=== PATIENT | female | born 1990 | race Caucasian/White ===

== ENCOUNTER 2023-05-14 17:13 | Emergency (ER) | payer OTHER, MEDICAID, SELFPAY ==
[2023-05-14] VITALS (12 sets, daily range): BP systolic 80–141; BP diastolic 47–71; PULSE 75–100; RESP 18–22; TEMP 36.8–37.1; O2SAT 98–100; BMI 31.5
[2023-05-14] MEDS: ONDANSETRON 4 MG/2 ML INJ IV (17:41)
--- NOTE | 2023-05-14 17:42 | PC.NURSE ---
Pt receiving IV in the [facility]. states she feels faint. appears pale. Pt had vasovagal reaction. HR 90 BP 80/49. reclined in chair. fluids infusing. zofran given. after 10 min, pt cheeks appear more flushed. at bedside. states she is feeling mildly better.
[2023-05-14] MEDS: SODIUM CHLORIDE 0.9% 1,000 ML 1000 ML IV ×2 (17:44→18:20)
[2023-05-14 18:22] LABS: Add Manual Diff / Slide Review NO; Basophils Absolute Auto 0 /uL (0-100); Basophils Percent Auto 0.4 % (0-2); Eosinophils Absolute Auto 0 /uL (0-450); Eosinophils Percent Auto 0.3 % (2-4); Hematocrit 41.4 % (36-46); Hemoglobin 14.3 g/dL (12.0-16.0); Lymphocytes Absolute Auto 400 /uL (1100-4500); Lymphocytes Percent Auto 3.2 % (25-40); Mean Corpuscular HGB Conc 34.6 % (30-36); Mean Corpuscular Hemoglobin 32.1 PG (26-34); Mean Corpuscular Volume 92.9 fL (80-100); Monocytes Absolute Auto 300 /uL (0-900); Neutrophils Absolute Auto 10600 /uL (1500-7000); Neutrophils Percent Auto 93.1 % (50-75); Platelet Count 304 X10^3/uL (150-400); Red Blood Cell Count 4.46 X10^6/uL (4.0-5.2); Red Cell Distribution Width 12.9 % (11.6-14.8); White Blood Cell Count 11.4 X10^3/uL (4.5-11.0)
[2023-05-14 18:36] LABS: BUN Creatinine Ratio 19.3 (6-22); Blood Urea Nitrogen 16 mg/dL (7-17); Calcium 9.1 mg/dL (8.4-10.2); Carbon Dioxide 21 mmol/L (22-32); Chloride 105 mmol/L (98-107); Estimated Glomerular Filt Rate > 60 mL/min (>60); Glucose 132 mg/dL (70-100); HEMOLYSIS < 15 (0-50); Potassium 4.5 mmol/L (3.4-5.1); Sodium 134 mmol/L (137-145)
--- NOTE | 2023-05-14 20:17 | ED.NAVMDI ---
HPI - Nausea/Vomiting/Diarrhea General Chief complaint: Nausea/Vomiting/Diarrhea Stated complaint: sent by [facility] for dehydration Time Seen by Provider: 05/14/23 17:38 Source: patient Mode of arrival: Ambulatory Limitations: no limitations History of Present Illness HPI Narrative: 32-year-old female was sent from the walk-in clinic for concerns of dehydration and potentially needing IV fluids. Patient states that for the past 2 weeks she has had persistent nausea. No vomiting. Has had multiple episodes of diarrhea. No recent travel. No recent antibiotics. Patient's had a couple days of diarrhea a couple days ago but that has since resolved. By the time I evaluated the patient she would received fluids and medications. She states she was feeling much better. Related Data Previous Rx's Medication Instructions Recorded ondansetron 4 mg disintegrating 4 mg PO Q6H PRN nausea and 05/14/23 tablet vomiting #10 tabs Allergies Allergy/AdvReac Type Severity Reaction Status Date / Time No Known Drug Allergies Allergy Unverified 05/14/23 16:27 Review of Systems Gastrointestinal Gastrointestinal: Reports system reviewed and no additional complaints, except as documented Genitourinary Genitourinary: Reports system reviewed and no additional complaints, except as documented Musculoskeletal Musculoskeletal: Reports system reviewed and no additional complaints, except as documented Patient History Social History Smoking Status: Never smoker Smoking Status: Never smoker alcohol intake frequency: a few times a week Substance Use Type: marijuana Exam Initial Vital Signs Initial Vital Signs: Vital Signs Temperature 98.3 F 05/14/23 17:19 Pulse Rate 100 H 05/14/23 17:19 Respiratory Rate 18 05/14/23 17:19 Blood Pressure 108/58 L 05/14/23 17:19 Pulse Oximetry 100 05/14/23 17:19 Oxygen Delivery Method Room Air 05/14/23 17:19 HENMT Head: normal to inspection and normocephalic Mouth: moist mucous membranes Resp Effort & Inspection: normal respiratory effort Cardio Rate: regular rate GI Inspection: normal to inspection Neuro General: patient alert and patient awake Course Orders Ordered: Discontinued Medications Sodium Chloride (Normal Saline 0.9%) 1,000 mls @ 1,000 mls/hr IV BOLUS ONE Stop: 05/14/23 18:41 Last Infusion: 05/14/23 19:12 Dose: Infused Documented By: ANA MARIA Admin: 05/14/23 17:44 Dose: 1,000 mls/hr Documented By: RONA Sodium Chloride (Normal Saline 0.9%) 1,000 mls @ 1,000 mls/hr IV BOLUS ONE Stop: 05/14/23 19:03 Last Infusion: 05/14/23 19:25 Dose: Infused Documented By: Admin: 05/14/23 18:20 Dose: 1,000 mls/hr Documented By: MICHA Ondansetron HCl (Ondansetron 4 Mg Odt) 4 mg SL NOW PRN PRN Reason: Nausea And Vomiting Ondansetron HCl (Ondansetron 4 Mg/2 Ml Inj) 4 mg IV NOW PRN PRN Reason: Nausea And Vomiting Last Admin: 05/14/23 17:41 Dose: 4 mg Documented By: RONA Ondansetron HCl (Ondansetron 4 Mg Odt Prepack) 1 bottle MISC DIRECTED ONE Stop: 05/14/23 20:18 Last Admin: 05/14/23 20:27 Dose: 1 bottle Documented By: MICHA Vital Signs Vital signs: Vital Signs - 8 hr 05/14/23 19:15 05/14/23 19:35 05/14/23 20:31 Temperature 98.8 F Pulse Rate 90 75 Pulse Rate [Orthostatic Sitting] 88 Pulse Rate [Orthostatic Standing] 95 H Respiratory Rate 20 18 Blood Pressure 106/58 L 120/67 Blood Pressure [Orthostatic Sitting] 112/66 Blood Pressure [Orthostatic Standing] 141/71 H Pulse Oximetry 100 99 Oxygen Delivery Method Room Air Room Air MDM - Nausea/Vomiting/Diarrhea Lab Data Attestation: I reviewed the patient's lab results. 05/14/23 17:39 05/14/23 17:39 Labs: Lab Results 05/14/23 Range/Units 17:39 WBC 11.4 H (4.5-11.0) X10^3/uL RBC 4.46 (4.0-5.2) X10^6/uL Hgb 14.3 (12.0-16.0) g/dL Hct 41.4 (36-46) % MCV 92.9 (80-100) fL MCH 32.1 (26-34) PG MCHC 34.6 (30-36) % RDW 12.9 (11.6-14.8) % Plt Count 304 (150-400) X10^3/uL Neut % (Auto) 93.1 H (50-75) % Lymph % (Auto) 3.2 L (25-40) % [place] % (Auto) 3.0 (3-14) % Eos % (Auto) 0.3 L (2-4) % Baso % (Auto) 0.4 (0-2) % Neut # (Auto) 51656 H (4077-7084) /uL Lymph # (Auto) 400 L (2736-7600) /uL [place] # (Auto) 300 (0-900) /uL Eos # (Auto) 0 (0-450) /uL Baso # (Auto) 0 (0-100) /uL Sodium 134 L (137-145) mmol/L Potassium 4.5 (3.4-5.1) mmol/L Chloride 105 (98-107) mmol/L Carbon Dioxide 21 L (22-32) mmol/L BUN 16 (7-17) mg/dL Creatinine 0.83 (0.52-1.04) mg/dL Estimated GFR > 60 (>60) mL/min BUN/Creatinine Ratio 19.3 (6-22) Glucose 132 H (70-100) mg/dL Calcium 9.1 (8.4-10.2) mg/dL Point of Care Testing Test Results Negative Glucose POC 128 Urine Dip Bedside Urine Glucose Negative Bedside Urine Bilirubin + 1 Bedside Urine Ketone +/- 5 Urine Specific [place] 1.010 Bedside Urine Occult Blood - Negative Bedside Urine pH 8.0 Bedside Urine Protein +/- 15 Bedside Urine Urobilinogen - Negative Bedside Urine Nitrite - Negative Bedside Urine Leukocytes +/- 15 Esterase MDM Narrative Medical decision making narrative: Labs unremarkable, test is negative, no leukocytosis. Feeling much better after IV fluids. Is tolerating oral intake. Will send home with nausea medication. We did discuss the use of antidiarrheal medicines. No indication for radiologic studies. She was given return precautions. She expressed understanding and agreement. Discharge Plan Departure Patient Disposition: Home Clinical Impression: Nausea, Diarrhea Instructions: Diarrhea, DI for Nausea -- Adult Activity Restrictions/Additional Instructions: I do recommend a bland diet. Be sure that you were increasing your fluid intake. You can try [id number] Imodium/loperamide to help with the diarrhea. Contact your primary doctor for a follow-up. Return to the emergency department for new symptoms. Prescriptions: New ondansetron 4 mg tablet,disintegrating 4 mg PO Q6H PRN (Reason: nausea and vomiting) Qty: 10 0RF Referrals: Miscellaneous,Doctor, MD [Primary Care Provider] - Stand Alone Forms: Patient Portal/API
[2023-05-14] MEDS: ONDANSETRON 4 MG ODT PREPACK 1 BOTTLE MISC (20:27)
== END 2023-05-14 20:32 | disposition home or self-care (01) ==
PROVIDERS: Emergency Provider Emergency Medicine
DX: R11.0 Nausea (principal); R19.7 Diarrhea, unspecified
CPT/HCPCS: 36415; 80048; 81003; 81025; 85025; 96361; 96374; 99284; J2405